=== PATIENT | male | born 2000 | race Hispanic/Latino ===

== ENCOUNTER 2022-08-31 07:49 | Emergency (ER) | payer OTHER ==
[~2022-08-31] VITALS: Ht 162.6 cm; Wt 78.9 kg
[2022-08-31 12:43] LABS: GC DNA AMPLIFICATION NEGATIVE (NEGATIVE)
[2022-08-31 13:24] VITALS: BP 134/69; TEMP 98.3; O2SAT 97
== END 2022-08-31 13:26 | disposition home or self-care (01) ==
LOC: M ED 07:49
DX: K40.90 Unilateral inguinal hernia, without obstruction or gangrene, not specified as recurrent (principal)